=== PATIENT | female | born 1990 | race American Indian/Alaskan Native ===

== ENCOUNTER 2016-12-08 11:52 | Emergency (ER) | payer BC ==
[2016-12-08 12:24] VITALS: BP 142/99
--- NOTE | 2016-12-08 12:27 | Emergency Department Report ---
Entered by NELIDA PERALTA, acting as scribe for TA VELÁSQUEZ NP. Chief Complaint: Extremity Injury, Lower Stated Complaint: R/L LEG PAIN Time Seen by Provider: 12/08/16 12:20 - HPI History of Present Illness: 26 y/o female presents c/o 01/30, achy bilateral leg pain that started 2 weeks ago. Pt denies injury to the legs but states she has been doing more walking at her new Job with [employer]. Sx include lumps on both lower legs, but she denies darker urine or N/V. - ROS Review of Systems: +lumps on lower legs bilaterally -urine darker than normal -nausea -vomiting - Exam Vital Signs: Vital Signs 12/08/16 12:19 Temperature 98.4 F Pulse Rate 109 H Respiratory 17 Rate Blood Pressure 142/99 O2 Sat by Pulse 99 Oximetry Physical Exam: pt looks well, non toxic steady gait, no ext edema noted MSE screening note: Focused history and physical exam performed. Due to findings the following was ordered: labs ED Disposition for MSE Condition: Stable This documentation as recorded by the scribe,NELIDA PERALTA,accurately reflects the service I personally performed and the decisions made by ,TA VELÁSQUEZ , INSURANCE RISK MANAGER.
[2016-12-08 12:45] LABS: Basophils % (Auto) 0.5 % (0.0-1.8); Eosinophils % (Auto) 1.1 % (0.0-4.3); Hematocrit 44.5 % (30.3-42.9); Hemoglobin 14.4 gm/dl (10.1-14.3); Mean Corpuscular HGB Conc 33 % (30-34); Mean Corpuscular Volume 80 fl (79-97); Platelet Count 212 K/mm3 (140-440); Red Blood Count 5.57 M/mm3 (3.65-5.03)
[2016-12-08 12:46] LABS: Mean Corpuscular Hemoglobin 26 pg (28-32)
[2016-12-08 12:57] LABS: Anion Gap 24 mmol/L; BUN/Creatinine Ratio 8.33; Blood Urea Nitrogen 5 mg/dL (7-17); Calcium 9.4 mg/dL (8.4-10.2); Carbon Dioxide 19 mmol/L (22-30); Chloride 90.3 mmol/L (98-107); Creatine Kinase 51 units/L (30-135); Sodium 129 mmol/L (137-145)
[2016-12-08 13:21] LABS: Glucose 537 mg/dL (65-100)
[2016-12-08] MEDS ORDERED: NACL 0.9% 1000 ML 1,000 ML ONE (16:53)
[2016-12-08] MEDS: NACL 0.9% 1000 ML 1,000 ML IV ONE (17:22)
[2016-12-08] MEDS: MOTRIN PO ONE (17:23)
--- NOTE | 2016-12-08 17:24 | Emergency Department Report ---
ED Extremity Problem HPI - General Chief complaint: Extremity Injury, Lower Stated complaint: R/L LEG PAIN Time Seen by Provider: 12/08/16 12:20 Source: patient Mode of arrival: Ambulatory Limitations: No Limitations - History of Present Illness Initial comments: 26-year-old [place] female comes in with complaint of bilateral leg pain times a couple weeks. She complains of lumps and bumps in her legs longer than that. Anus worse with lying down as well as legs resting. She denies any injuries denies. Patient reports that past medical history of diabetes is uncontrolled. She is currently on no medication at this time. She was taking metformin and Invakana but was not able to keep either medication down. Patient is currently on no medication for diabetes and has no follow-up here in the city. - Related Data Previous Rx's Medication Instructions Recorded Last Taken Type Ibuprofen [Motrin 800 MG tab] 800 mg PO Q8HR PRN #30 tablet 12/08/16 Unknown Rx Metformin HCl [Metformin HCl ER] 500 mg PO QDAY #30 [id number] 12/08/16 Unknown Rx Allergies Allergy/AdvReac Type Severity Reaction Status Date / Time No Known Allergies Allergy Unverified 12/08/16 12:19 ED Review of Systems ROS: Stated complaint: R/L LEG PAIN Other details as noted in HPI ED Past Medical Hx - Past Medical History Hx Diabetes: Yes Hx Headaches / Migraines: Yes - Surgical History Past Surgical History?: No - Social History Smoking Status: Former Smoker - Medications Home Medications: Home Medications Medication Instructions Recorded Confirmed Last Taken Type Ibuprofen [Motrin 800 MG tab] 800 mg PO Q8HR PRN #30 tablet 12/08/16 Unknown Rx Metformin HCl [Metformin HCl ER] 500 mg PO QDAY #30 [id number] 12/08/16 Unknown Rx ED Physical Exam - General Limitations: No Limitations General appearance: alert, in no apparent distress - Head Head exam: Present: atraumatic, normocephalic - Eye Eye exam: Present: PERRL, EOMI - ENT ENT exam: Present: normal exam, mucous membranes moist - Cardiovascular Cardiovascular Exam: Present: tachycardia, normal heart sounds - Extremities Exam Extremities exam: Present: full ROM, tenderness, normal capillary refill, other (patient appears to have soft brown lumps on the lateral aspect of her calf.). Absent: pedal edema, joint swelling, calf tenderness ED Course Vital Signs 12/08/16 12:19 Temperature 98.4 F Pulse Rate 109 H Respiratory 17 Rate Blood Pressure 142/99 O2 Sat by Pulse 99 Oximetry ED Medical Decision Making - Lab Data Result diagrams: 12/08/16 12:27 12/08/16 12:27 - Medical Decision Making Patient's been evaluated by this provider fast track. Review of patient's labs noticed that her blood sugar was 537. We will start a normal saline bolus at this time. We will give patient Motrin 800mg for leg pains. Critical care attestation.: If time is entered above; I have spent that time in minutes in the direct care of this critically ill patient, excluding procedure time. ED Disposition Clinical Impression: Lower extremity pain, anterior, Diabetes 1.5, managed as type 2 Disposition: DISCHARGED TO HOME OR SELFCARE Is pt being admited?: No Does the pt Need Aspirin: No Condition: Stable Instructions: Diabetes Mellitus Type 2 in Adults (ED), Arthralgia (ED) Additional Instructions: It is very important for you to take the metformin extended release. As prescribed 1 tablet daily. Motrin for pain as prescribed. Please follow up with her primary care provider. Prescriptions: Ibuprofen [Motrin 800 MG tab] 800 mg PO Q8HR PRN #30 tablet PRN Reason: Pain Metformin HCl [Metformin HCl ER] 500 mg PO QDAY #30 [id number] Referrals: PRIMARY CARE, [Primary Care Provider] - 3-5 Days [facility] [Provider Group] - 3-5 Days Forms: Work/School Release Form(ED)
== END 2016-12-08 19:10 | disposition home or self-care (01) ==
LOC: ED 11:52
DX: M79.605 Pain in left leg (principal); M79.604 Pain in right leg; E11.9 Type 2 diabetes mellitus without complications; G43.909 Migraine, unspecified, not intractable, without status migrainosus; Z87.891 Personal history of nicotine dependence
CPT/HCPCS: 36415; 80048; 82550; 82962; 85025; 96360; 99283; J7030